=== PATIENT | female | born 1995 ===

== ENCOUNTER 2017-06-14 07:44 | Emergency (ER) | payer OTHER ==
[2017-06-14 07:51] VITALS: TEMP 97.5
[2017-06-14] MEDS ORDERED: Sodium Chloride 0.9% 1,000 ML IV ONE (08:33)
[2017-06-14] MEDS ORDERED: Sodium Chloride 0.9% 1,000 ML ONE (08:44)
[2017-06-14 08:49] LABS: BASO % 0.2 % (0.0-2.0); EOS # 0.3 K/uL (0.0-0.7); EOS % 3.9 % (0.0-4.0); HEMOGLOBIN 14.2 g/dL (11.0-16.0); LYMPH # 2.5 K/uL (1.0-4.3); LYMPH % 33.3 % (20.0-40.0); MEAN CORPUSCULAR HEMOGLOBIN 32.5 pg (27.0-31.0); MEAN CORPUSCULAR HGB CONC 34.5 g/dL (33.0-37.0); MEAN PLATELET VOLUME 8.5 fL (7.2-11.7); MONO # 0.5 K/uL (0.0-0.8); MONO % 6.6 % (0.0-10.0); NEUT # 4.2 K/uL (1.8-7.0); RBC 4.36 Mil/uL (3.80-5.20); RED CELL DISTRIBUTION WIDTH 12.8 % (11.5-14.5); WHITE BLOOD COUNT 7.5 K/uL (4.8-10.8)
[2017-06-14 09:01] LABS: ALB/GLOB RATIO 1.2 (1.0-2.1); ALBUMIN 4.2 g/dL (3.5-5.0); ALT/SGPT 41 U/L (9-52); AST/SGOT 25 U/L (14-36); BLOOD UREA NITROGEN 4 mg/dL (7-17); CALCIUM 8.6 mg/dl (8.6-10.4); GFR AFRICAN-AMERICAN > 60; GFR NON-AFRICAN AMERICAN > 60
[2017-06-14 09:05] LABS: SQUAMOUS EPITHIAL 12 /hpf (0-5); URINE BACTERIA RARE (<OCC); URINE BILIRUBIN NEGATIVE (NEGATIVE); URINE BLOOD 1+ (NEGATIVE); URINE COLOR Yellow (YELLOW); URINE GLUCOSE (UA) NORMAL (Normal); URINE LEUKOCYTE ESTERASE 2+ Leu/uL (Negative); URINE NITRATE NEGATIVE (NEGATIVE); URINE PROTEIN 1+ mg/dL (NEGATIVE); URINE UROBILINOGEN NORMAL mg/dL (0.2-1.0)
[2017-06-14 09:08] LABS: URINE CLARITY SLHAZY (Clear)
--- NOTE | 2017-06-14 10:20 | US ---
Indication: PELVIC PAIN, VAGINAL BLEEDING, Comparison: None available. Technique: Transabdominal pelvic ultrasound Findings: The uterus measures approximately 12.4 x 6.0 x 8.3 cm. Cervix length measures approximately 3.9 cm. There is a single intrauterine fetus present. 4 mm yolk sac. The gestational sac measures 4.4 cm and is compatible with a gestational age of 10 weeks 0 days. The crown-rump length measures 2.6 cm and is compatible with a gestational age of 9 weeks 3 days. 0.8 x 0.5 x 1.1 cm probable subchorionic hemorrhage. There is heart motion which measured 162.3 BPM. The right ovary measures 3.1 x 1.3 x 2.5 cm. The left ovary measures 3.1 x 1.8 x 2.3 cm. Blood flow was demonstrated to both ovaries. Impression: Live single intrauterine with estimated gestational age 10 weeks 0 days by gestational sac calculation and 9 weeks 3 days by crown-rump length calculation. heart rate 162.3 bpm. 0.8 x 0.5 x 1.1 cm probable subchorionic hemorrhage. Advise an anomaly screen at 16-18 weeks gestational age.
--- NOTE | 2017-06-14 10:45 | C.PDOC ---
History Of Present Illness Patient presents to ED c/o vaginal spotting and pelvic cramping since this morning. She is currently approx 10 weeks , . Patient denies fever , vomiting/diarrhea, vaginal discharge, dysuria/hematuria. Patient has not had care yet. Time Seen by Provider: 06/14/17 07:51 Chief Complaint (Nursing): Female Genitourinary History Per: Patient History/Exam Limitations: no limitations Onset/Duration Of Symptoms: Hrs Current Symptoms Are (Timing): Still Present Severity: Mild Quality Of Discomfort: Cramping, "Pain" Abnormal Vaginal Bleeding: Yes Past Medical History Reviewed: Historical Data, Nursing Documentation, Vital Signs Vital Signs: Last Vital Signs Temp 97.5 F L 06/14/17 07:49 Pulse 69 06/14/17 10:56 Resp 16 06/14/17 10:56 BP 102/69 06/14/17 10:56 Pulse Ox 99 06/14/17 15:40 - Medical History PMH: No Chronic Diseases Surgical History: No Surg Hx Family History: States: No Known Family Hx - Social History Hx Alcohol Use: No Hx Substance Use: No - Immunization History Hx Tetanus Toxoid Vaccination: No Hx Influenza Vaccination: Yes Hx Pneumococcal Vaccination: No Review Of Systems Except As Marked, All Systems Reviewed And Found Negative. Constitutional: Negative for: Fever, Chills Cardiovascular: Negative for: Chest Pain Respiratory: Negative for: Cough, Shortness of Breath Gastrointestinal: Negative for: Nausea, Vomiting, Abdominal Pain, Diarrhea Genitourinary: Positive for: Vaginal Bleeding, Pelvic Pain. Negative for: Dysuria, Hematuria, Vaginal Discharge Physical Exam - Physical Exam Appears: Well, Non-toxic, No Acute Distress Oral Mucosa: Moist Cardiovascular: Rhythm Regular Respiratory: Normal Breath Sounds, No Rales, No Rhonchi, No Wheezing Gastrointestinal/Abdominal: Normal Exam, Bowel Sounds, Soft, No Tenderness Back: No CVA Tenderness Neurological/Psych: Oriented x3 ED Course And Treatment - Laboratory Results Result Diagrams: 06/14/17 08:45 06/14/17 08:45 O2 Sat by Pulse Oximetry: 99 (RA) Pulse Ox Interpretation: Normal - CT Scan/US transvaginal US Other Rad Studies (CT/US): Read By Radiologist, Radiology Report Reviewed CT/US Interpretation: Accession No. : [id number]. Patient Name / ID : JANENE ARCE / [id number]. Exam Date : 06/14/2017 09:26:34 ( Approved ). Study Comment : Sex / Age : F / 21Y. Creator : Opal Reeder MD. Dictator : Opal Reeder MD. Film Laboratory Technician : Employment Advisor : Opal Reeder MD. Approver2 : Report Date : 06/14/2017 10:18:46. My Comment : . Indication: PELVIC PAIN, VAGINAL BLEEDING, . Comparison: None available. Technique: Transabdominal pelvic ultrasound. Findings: The uterus measures approximately 12.4 x 6.0 x 8.3 cm. Cervix length measures approximately 3.9 cm. There is a single intrauterine fetus present. 4 mm yolk sac. The gestational sac measures 4.4 cm and is compatible with a gestational age of 10 weeks 0 days. The crown-rump length measures 2.6 cm and is compatible with a gestational age of 9 weeks 3 days. 0.8 x 0.5 x 1.1 cm probable subchorionic hemorrhage. There is heart motion which measured 162.3 BPM. The right ovary measures 3.1 x 1.3 x 2.5 cm. The left ovary measures 3.1 x 1.8 x 2.3 cm. Blood flow was demonstrated to both ovaries. Impression: Live single intrauterine with estimated gestational age 10 weeks 0 days by gestational sac calculation and 9 weeks 3 days by crown-rump length calculation. heart rate 162.3 bpm. 0.8 x 0.5 x 1.1 cm probable subchorionic hemorrhage. Advise an anomaly screen at 16-18 weeks gestational age. Progress Note: Blood work, UA, transvaginal US ordered and reviewed. Patient given IV NS bolus. UA shows mild UTI, PO Macrobid given. Reevaluation Time: 10:50 Reassessment Condition: Improved (On reassessment, patient is resting comfortably, in no pain/distress. On exam, abdomen is soft and nontender. US hows 10wk live IUP with small subchorionic hemorrhage. UA (+) for UTI. Patient given Rx for macrobid, and she was instructed to follow up with [facility] within 1 week. She understands she should return to ED if symptoms worsen.) Disposition Counseled Patient/Family Regarding: Studies Performed, Diagnosis, Need For Followup, Rx Given - Disposition Referrals: [facility] at [facility] [Outside] Disposition: HOME/ ROUTINE Disposition Time: 10:50 Condition: STABLE Additional Instructions: FOLLOW UP WITH [facility] WITHIN 1 WEEK USE MEDICATION DIRECTED RETURN TO EMERGENCY ROOM IF SYMPTOMS WORSEN SEGUIMIENTO CON OB / TAKE UP [facility] DE 1 SEMANA USE MEDICAMENTOS SEGN LO INDICADO REGRESE AL ROB DE EMERGENCIA SI LOS SNTOMAS EMPEORAN Prescriptions: Nitrofurantoin Macrocrystals [Macrobid] 1 cap PO BID #14 cap Instructions: First Trimester Vaginal Bleed (ED), Urinary Tract Infection in (ED) Forms: [employer] ([place]an) Print Language: TELUGU - POA Present On Arrival: None - Clinical Impression Clinical Impression: Vaginal bleeding in , UTI (urinary tract infection) during
[2017-06-14 10:57] VITALS: BP 102/69; PULSE 69; RESP 16
[2017-06-14 15:39] VITALS: O2SAT 99
== END 2017-06-14 11:05 | disposition home or self-care (01) ==
LOC: C.ER 07:44
DX: O20.9 Hemorrhage in early pregnancy, unspecified (principal); O23.41 Unspecified infection of urinary tract in pregnancy, first trimester; Z3A.10 10 weeks gestation of pregnancy
CPT/HCPCS: 76801; 80053; 81001; 84702; 85025; 86850; 86900; 96360; 99285; J7040

== ENCOUNTER 2018-08-05 18:24 | Emergency (ER) | payer SELFPAY ==
[2018-08-05 18:34] VITALS: BP 127/84; PULSE 69; RESP 16; TEMP 97.9; O2SAT 98
[2018-08-05] MEDS ORDERED: Amoxicillin-Clav 875-125 mg Tab PO STA (18:45)
[2018-08-05] MEDS ORDERED: Amoxicillin-Clav 875-125 mg Tab PO ONE (18:51)
--- NOTE | 2018-08-05 19:11 | C.PDOC ---
History Of Present Illness 22 y/o female presents to the ED complaining of a sore throat and body aches for the past few days. States [place]. Patient denies any fever or chills, nausea, vomiting, or inability to swallow. Time Seen by Provider: 08/05/18 18:43 Chief Complaint (Nursing): ENT Problem History Per: Patient History/Exam Limitations: None Onset/Duration Of Symptoms: Days Current Symptoms Are (Timing): Still Present Quality (Mouth/Throat): Tenderness, Redness Past Medical History Reviewed: Historical Data, Nursing Documentation, Vital Signs Vital Signs: Last Vital Signs Temp 97.9 F 08/05/18 18:32 Pulse 69 08/05/18 18:32 Resp 16 08/05/18 18:32 BP 127/84 08/05/18 18:32 Pulse Ox 98 08/05/18 18:32 Surgical History: No Surg Hx Family History: States: Unknown Family Hx - Social History Hx Tobacco Use: No Hx Alcohol Use: No Hx Substance Use: No - Immunization History Hx Tetanus Toxoid Vaccination: No Hx Influenza Vaccination: Yes Hx Pneumococcal Vaccination: No Review Of Systems Except As Marked, All Systems Reviewed And Found Negative. Constitutional: Positive for: Other (Bodyaches). Negative for: Fever, Chills ENT: Positive for: Throat Pain. Negative for: Other (inability to swallow) Cardiovascular: Negative for: Chest Pain Respiratory: Negative for: Shortness of Breath, Wheezing Gastrointestinal: Negative for: Vomiting, Diarrhea Musculoskeletal: Negative for: Neck Pain Neurological: Negative for: Weakness, Headache, Dizziness Physical Exam - Physical Exam Appears: Non-toxic, No Acute Distress Skin: Warm, Dry, No Rash Head: Atraumatic, Normacephalic Eye(s): bilateral: Normal Inspection, PERRL, EOMI Nose: Normal Oral Mucosa: Moist Throat: Erythema (+Pharyngeal erythema), Exudate (Tonsillar exudates bilaterally), Other (Uvula midline, airway patent) Neck: Normal ROM Chest: Symmetrical Cardiovascular: Rhythm Regular, No Murmur Respiratory: Normal Breath Sounds, No Rales, No Rhonchi, No Wheezing Extremity: Bilateral: Atraumatic, Normal Color And Temperature Neurological/Psych: Oriented x3, Normal Speech ED Course And Treatment O2 Sat by Pulse Oximetry: 98 (RA) Pulse Ox Interpretation: Normal Progress Note: Throat culture sent. Will treat patient empirically with Augmentin. Given RX to go home with. Advised patient to follow up with the clinic in 1-2 days. Disposition - Disposition Referrals: [facility] [Outside] Disposition: HOME/ ROUTINE Disposition Time: 19:10 Condition: STABLE Additional Instructions: Follow up with PMD within 1-2 days. Return to ED if feel worse. 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 - Scribe Statement The provider has reviewed the documentation as recorded by the Scribsharon Murphy All medical record entries made by the Scribe were at my direction and personally dictated by me. I have reviewed the chart and agree that the record accurately reflects my personal performance of the history, physical exam, medical decision making, and the department course for this patient. I have also personally directed, reviewed, and agree with the discharge instructions and disposition.
== END 2018-08-05 19:10 | disposition home or self-care (01) ==
LOC: C.ER 18:24
DX: J02.9 Acute pharyngitis, unspecified (principal)